=== PATIENT | male | born 1965 | race Caucasian/White ===

== ENCOUNTER 2016-12-14 16:11 | Emergency (ER) | payer BC ==
[~2016-12-14] VITALS: Ht 172.7 cm; Wt 122.7 kg
[~2016-12-14 16:11] MED LIST: AMOXICILLIN875 MG PO; ASPIRIN 81M81 MG/TA2 PO; CEPHALEXIN500 M1 PO; NO HOME MEDICATIONS; NORCO 325 MG-51 TAB PO; PRINZIDE 12.5 M1 TA1 PO; [UNRECOGNIZED DRUG - REMARK]
[2016-12-14 16:13] VITALS: TEMP 98.4
[2016-12-14 17:57] VITALS: BP 142/96; PULSE 88
== END 2016-12-14 17:58 | disposition home or self-care (01) ==
LOC: COL.ER 16:11
DX: M25.561 Pain in right knee (principal)
CPT/HCPCS: L1830

== ENCOUNTER 2017-12-15 11:14 | Emergency (ER) | payer BC ==
[~2017-12-15] VITALS: Ht 172.7 cm; Wt 127.3 kg
[2017-12-15 11:17] VITALS: BP 174/105; TEMP 98.9
[2017-12-15] MEDS ORDERED: MEDROL 4MG DOSPA4 MG PO (13:05)
[2017-12-15] MEDS ORDERED: PROAIR HFA0.09 MG/AC IH (13:05)
[2017-12-15 13:12] VITALS: PULSE 105
== END 2017-12-15 13:13 | disposition home or self-care (01) ==
LOC: COL.ER 11:14
DX: J40 Bronchitis, not specified as acute or chronic (principal); J02.9 Acute pharyngitis, unspecified; I10 Essential (primary) hypertension; F17.290 Nicotine dependence, other tobacco product, uncomplicated

== ENCOUNTER 2019-02-22 10:51 | Inpatient (IN) | payer BC ==
[~2019-02-22] VITALS: Ht 177.8 cm; Wt 98.8 kg
[2019-02-22] VITALS (514 sets, daily range): BP systolic 123–149; BP diastolic 79–140; PULSE 66–79; TEMP 97.7–97.8; O2SAT 75–100
[~2019-02-22 10:51] MED LIST changes: +MEDROL 4MG DOSPA4 MG PO; +PROAIR HFA0.09 MG/AC IH
[2019-02-22 11:47] LABS: BASO # 0.1 (0.0-0.2); BASO % 1.1 % (0.0-2.0); EOS % 0.8 % (0-4.0); GRAN # 2.7 (1.4-6.5); GRAN % 57.1 % (42.2-75.2); HEMATOCRIT 42.4 % (42.0-52.0); HEMOGLOBIN 15.7 g/dl (13.5-18.0); LYMPH # 1.6 (1.2-3.4); LYMPH % 33.5 % (20.0-51.0); MEAN CELL VOLUME 92 fl (80.0-100.0); MEAN CORPUSCULAR HEMOGLOBIN 34 pg (27.0-31.0); MEAN CORPUSCULAR HGB CONC 37 g/dl (33.0-37.0); MEAN PLATELET VOLUME 10.3 fl (7.4-10.4); MONO # 0.3 (0.1-0.6); MONO % 6.9 % (1.7-9.3); PLATELET COUNT 168 K/mm3 (130-400); RED BLOOD COUNT 4.62 M/mm3 (4.20-5.60); REDCELL DISTRIBUTION WIDTH-CV 14.1 % (11.5-14.5)
[2019-02-22 11:49] LABS: PROTHROMBIN TIME 11.3 SECONDS (9.7-12.8)
[2019-02-22 12:01] LABS: BILIRUBIN,TOTAL 0.8 mg/dL (0.0-1.0); C-REACTIVE PROTEIN 0.9 mg/dL (0.0-0.9); CREATININE, serum 0.54 (0.66-1.25); TOTAL PROTEIN 7.4 gm/dL (6.4-8.2)
[2019-02-22 12:03] LABS: POTASSIUM 2.3 mmol/L (3.4-5.0)
[2019-02-22 12:07] LABS: ERYTHROCYTE SEDIMENTATION RATE 2 mm/hr (0-30)
[2019-02-22] MEDS ORDERED: MOTRIN 800800 MG/TAB PO (12:39)
--- NOTE | 2019-02-22 14:20 | NUR ---
Patient arrives to ICU room 2 via WC from ED. He is placed on ICU monitors and assesment and vitals are as charted. Care assumed at this time.
--- NOTE | 2019-02-22 14:31 | NUR ---
Dr. Araiza notified of patient arrival to ICU 2. states he will be down shortly.
[2019-02-22 16:36] LABS: CALCIUM 8.5 mg/dL (8.4-10.2); CREATININE, serum 0.45 (0.66-1.25)
[2019-02-22 16:38] LABS: POTASSIUM 2.8 mmol/L (3.4-5.0)
[2019-02-22 18:17] LABS: COLLECTION METHOD CLEAN CATCH
[2019-02-22 18:36] LABS: MUCOUS Present /lpf; PH 7 (5-8); SQUAMOUS EPITHELIAL None Seen /hpf; TRICYCLIC ANTIDEPRESS URINE NEGATIVE; URINE APPEARANCE Clear; URINE BACTERIA Rare /hpf; URINE BILIRUBIN Negative (NEGATIVE); URINE BLOOD Negative (NEGATIVE); URINE COLOR Yellow; URINE GLUCOSE 3+ (NEGATIVE); URINE KETONE Trace (NEGATIVE); URINE LEUKOCYTE ESTERASE Negative (NEGATIVE); URINE NITRATE Negative (NEGATIVE); URINE PROTEIN(semi-quant) 1+ (NEGATIVE); URINE RBC None Seen /hpf; URINE WBC 0-2 /hpf
--- NOTE | 2019-02-22 19:13 | NUR ---
Bedside report provided to YUKO Flannery.
--- NOTE | 2019-02-22 19:32 | NUR ---
Patient assessment completed and charted at this time, please see documentation for details. Patient resting in bed, no questions or concerns at this time. Call light within reach, will continue to monitor and assess.
[2019-02-22 22:21] LABS: CALCIUM 8.1 mg/dL (8.4-10.2); CREATININE, serum 0.49 (0.66-1.25); MAGNESIUM 2.1 mg/dL (1.6-2.3); POTASSIUM 3.2 mmol/L (3.4-5.0)
[2019-02-23] VITALS (611 sets, daily range): BP systolic 96–144; BP diastolic 59–96; PULSE 52–67; TEMP 97.3–98.6; O2SAT 36–100
[2019-02-23 03:16] LABS: BASO # 0.1 (0.0-0.2); EOS # 0.1 (0.0-0.7); EOS % 1.2 % (0-4.0); GRAN % 38.9 % (42.2-75.2); HEMATOCRIT 38.7 % (42.0-52.0); HEMOGLOBIN 13.8 g/dl (13.5-18.0); LYMPH # 2.6 (1.2-3.4); LYMPH % 50.6 % (20.0-51.0); MEAN CELL VOLUME 96 fl (80.0-100.0); MEAN CORPUSCULAR HEMOGLOBIN 34 pg (27.0-31.0); MEAN CORPUSCULAR HGB CONC 36 g/dl (33.0-37.0); MEAN PLATELET VOLUME 10.7 fl (7.4-10.4); MONO # 0.4 (0.1-0.6); MONO % 8.1 % (1.7-9.3); PLATELET COUNT 147 K/mm3 (130-400); RED BLOOD COUNT 4.03 M/mm3 (4.20-5.60); REDCELL DISTRIBUTION WIDTH-CV 14.7 % (11.5-14.5)
[2019-02-23 03:28] LABS: BILIRUBIN,TOTAL 0.8 mg/dL (0.0-1.0); CALCIUM 7.9 mg/dL (8.4-10.2); CREATININE, serum 0.47 (0.66-1.25); MAGNESIUM 2.1 mg/dL (1.6-2.3); TOTAL PROTEIN 5.9 gm/dL (6.4-8.2)
[2019-02-23 03:29] LABS: POTASSIUM 2.9 mmol/L (3.4-5.0)
--- NOTE | 2019-02-23 07:15 | NUR ---
Report received from Prudencio HUNTLEY and care resumed.
--- NOTE | 2019-02-23 10:15 | NUR ---
Dr Araiza in to see pt at this time. Will transition off insulin drip and plan to transfer to floor. Will continue to follow.
--- NOTE | 2019-02-23 10:30 | NUR ---
SW attended clinical rounds to discuss discharge planning. Patient lives at home with his roommate. Patient does not currently have a PCP but is interested in obtaining one. SW inquired if patient would like to see a PCP at the [facility]. Patient reports he would be agreeable to that. Patient obtain prescriptions at [facility] pharmacy and reports not difficulties obtaining medications. Patient does not use any DME or home health services. It is reported that patient drinks a half gallon of rum daily. SW inquired if patient has ever been interested in alcohol treatment. Patient reports he has gone through treatment in the past and is not interested in doing that again. Patient does not have a DPOA but would like to complete the DPOA form. Patient designated his daughter. SW and SW student witnessed signature. SW provided original and extra copies. SHANNAN does not anticipate any discharge needs.
--- NOTE | 2019-02-23 12:07 | NUR ---
Initial visit; Patient thanked Emergency Veterinary Assistant for looking in on him and offering God's blessings.
--- NOTE | 2019-02-23 13:48 | NUR ---
Report given to Cary HUNTLEY and chapo tranfered.
--- NOTE | 2019-02-23 14:25 | NUR ---
Report claled to Nona HUNTLEY on medical floor. Pt to transfer to room 355 per wheelchair with chart and belongings.
--- NOTE | 2019-02-23 15:18 | NUR ---
PATIENT TRANSFERED TO ROOM 355 FROM ICU. A/O X 4 ATTITUDE CALM, COOPERATIVE AND PLEASANT. DENIES C/O OF PAIN OR DISCOMFORT. NS WITH 20MEQ OF K+ INFUSING ORDERED @ 100MLS PER HOUR. IV ACCESS WITH 20G IN BILATERAL HANDS. PATIENT ORIENTATED TO ROOM AND PLAN OF CARE AT THIS TIME. TELEMETRY IN PLACE. SEE FLOWSHEET FOR FVS OBTAINED.
[2019-02-24] VITALS (11 sets, daily range): BP systolic 125–168; BP diastolic 53–89; PULSE 56–77; TEMP 97.7–98.6
--- NOTE | 2019-02-24 00:08 | NUR ---
Completed assessment and medication administration; PT reported headache administered PRN pain medication and requested Tylenol or IBU for ongoing treatment from hospitalist oncog; PT A&O x4, BS active x4, CTAB, HRRR, IND AMB, daughter in room; No further assessed or verbalized complaints or concerns at time of exit; PT able to return to comfortable position in bed with personal items and call light within reach; Will continue to monitor. CDA
--- NOTE | 2019-02-24 01:46 | NUR ---
PT resting well in bed; No assessed or verbalized concerns or complaints at times of rounds; PT resting post PRN medication for headache; No new Tylenol or IBU orders with PT history, will continue current pain regimen as order; Will continue to monitor. CDA
[2019-02-24 06:20] LABS: BASO % 0.8 % (0.0-2.0); EOS % 0.8 % (0-4.0); GRAN # 2.3 (1.4-6.5); GRAN % 45.2 % (42.2-75.2); HEMATOCRIT 41.3 % (42.0-52.0); HEMOGLOBIN 14.5 g/dl (13.5-18.0); LYMPH # 2.4 (1.2-3.4); LYMPH % 46.5 % (20.0-51.0); MEAN CELL VOLUME 98 fl (80.0-100.0); MEAN CORPUSCULAR HEMOGLOBIN 34 pg (27.0-31.0); MEAN CORPUSCULAR HGB CONC 35 g/dl (33.0-37.0); MEAN PLATELET VOLUME 10.8 fl (7.4-10.4); MONO # 0.3 (0.1-0.6); MONO % 6.5 % (1.7-9.3); PLATELET COUNT 135 K/mm3 (130-400); RED BLOOD COUNT 4.21 M/mm3 (4.20-5.60); REDCELL DISTRIBUTION WIDTH-CV 14.6 % (11.5-14.5)
[2019-02-24 06:33] LABS: CALCIUM 7.7 mg/dL (8.4-10.2); CREATININE, serum 0.45 (0.66-1.25); POTASSIUM 3.4 mmol/L (3.4-5.0)
--- NOTE | 2019-02-24 06:58 | NUR ---
Report given to YUKO Castellano; No significant changes or concerns at time of shift change. CDA
--- NOTE | 2019-02-24 08:23 | NUR ---
PATIENT SITTING UP IN BED PLAYING ON PHONE AND WATCHING TV. ATTITUDE CALM AND COOPERATIVE. ALCOHOL WITHDRAWL SCORE 0. DENIES C/O OF PAIN, DISCOMFORT, OR ANXIETY. ATE 100% OF BREAKFAST WITH NO N/V. SHIFT ASSESSMENT WNL. POTASSIUM PROTOCOL ORDERS IN PLACE.
--- NOTE | 2019-02-24 13:49 | NUR ---
Primary nurse was assisted with [id number] was assisted with [employer] [employer] ADN student Carlos Ace and [facility] instructor Shanta Johnson RN-BC.
--- NOTE | 2019-02-24 16:09 | NUR ---
SHANNAN met with the patient to review discharge plan. The patient reports that he still plans to return home with his roommate and is not interested in alcohol treatment at this time. He informed SW that his health insurance does not have a prescription plan, but states that his sister provided him with prescription discount cards to [employer]. He states that he has a job and that tomorrow is pay day. SHANNAN informed the patient that she can hewitt his meds at this preferred pharmacy, [facility]. SHANNAN also followed up with the patient on primary care. The patient reports that he would like to be set up at the [facility]. SHANNAN to inform the patient's PA and continue to follow.
--- NOTE | 2019-02-24 19:28 | NUR ---
Pt had uneventful day, diabetic education discussed with patient. No needs at this time. Call light within reach.
[2019-02-25] VITALS (7 sets, daily range): BP systolic 127–189; BP diastolic 66–89; PULSE 50–113; TEMP 97.6–98.4
--- NOTE | 2019-02-25 00:45 | NUR ---
Completed assessment and medication administration; PT tolerated all cares well; No acute verbalized concerns; PT ready and interested in insulin education; PT A&Ox4, BS active x4, IND AMB, HRRR, PERRLA; 0 scoring with DETOX; No further assessed or verbalized concerns at time of exit; PT able to return to comfortable position in bed with personal items and call light within reach. CDA
--- NOTE | 2019-02-25 01:00 | NUR ---
THIS NURSE TAKING OVER CARE FOR PATIENT AT THIS TIME. PT SLEEPING.
--- NOTE | 2019-02-25 06:30 | NUR ---
PT APPEARED TO HAVE SLEPT WELL. VITALS REMAIN STABLE. PT ONLY SCORED A 1 ON DETOX SCALE THIS AM DUE TO PULSE OF 113. NO ISSUES OR CONSERNS VOICED AT THIS TIME.
[2019-02-25 07:10] LABS: BASO % 0.6 % (0.0-2.0); EOS % 0.8 % (0-4.0); GRAN # 3.1 (1.4-6.5); GRAN % 58.9 % (42.2-75.2); HEMATOCRIT 40.8 % (42.0-52.0); HEMOGLOBIN 14.1 g/dl (13.5-18.0); LYMPH # 1.8 (1.2-3.4); LYMPH % 33.2 % (20.0-51.0); MEAN CELL VOLUME 99 fl (80.0-100.0); MEAN CORPUSCULAR HEMOGLOBIN 34 pg (27.0-31.0); MEAN CORPUSCULAR HGB CONC 35 g/dl (33.0-37.0); MEAN PLATELET VOLUME 10.9 fl (7.4-10.4); MONO # 0.3 (0.1-0.6); MONO % 6.1 % (1.7-9.3); PLATELET COUNT 140 K/mm3 (130-400); RED BLOOD COUNT 4.12 M/mm3 (4.20-5.60); REDCELL DISTRIBUTION WIDTH-CV 14.6 % (11.5-14.5)
[2019-02-25 07:21] LABS: CALCIUM 7.9 mg/dL (8.4-10.2); CREATININE, serum 0.44 (0.66-1.25); POTASSIUM 3.2 mmol/L (3.4-5.0)
--- NOTE | 2019-02-25 09:05 | NUR ---
Pt assessment complete. Pt will have a student nurse caring for him this am. Pt is sitting up on the side of the bed watching shows on his phone. He is A/O x3. His breathing is even and unlabored on RA. He denies SOB. Pt denies any pain at this time. No N/V. He denies any N/T. Diabetic education given, pt demonstrated proper insulin injection technique. Handouts to be provided. No further needs at this time. Call light within reach.
[2019-02-25] MEDS ORDERED: ZESTRIL 20MG TA20 MG PO (13:34)
[2019-02-25] MEDS ORDERED: PRIL40 PO (13:37)
[2019-02-25] MEDS ORDERED: GLUCOPHAGE500 MG/TAB PO (13:38)
[2019-02-25] MEDS ORDERED: NOVOLIN 70/30 710 ML SQ (13:39)
[2019-02-25] MEDS ORDERED: K-DUR20 MEQ PO (13:41)
--- NOTE | 2019-02-25 13:46 | NUR ---
Primary nurse was assisted with [id number] patient care by [employer] student Carlos Ace and [employer] instructor Shanta Johnson RN-BC.
[2019-02-25] MEDS ORDERED: FREESTYLE PREC1 EAC5 MC (13:50)
[2019-02-25] MEDS ORDERED: GLUCOSE TEST ST1 DEV MC (13:50)
[2019-02-25] MEDS ORDERED: CVS GLUCOSE BIT1 CTB PO (13:50)
[2019-02-25] MEDS ORDERED: B-D SAFETY GLID1 DE1 SQ (13:50)
[2019-02-25] MEDS ORDERED: LANCETS MC (13:50)
--- NOTE | 2019-02-25 15:07 | NUR ---
SW contacted the patient's pharmacy, [facility], to hewitt his medications. The glucometer the pharmacy picked out was $100.99, but they report they have a cheaper brand that costs around $9.00. The pharmacist reports that she will pull that glucometer for the patient and the supplies that goes along with it. SW updated the patient. The patient was in agreeance to pursue getting his meds at [facility]. He states that he also has those discount prescription cards that he can try using. No additional needs at this time.
--- NOTE | 2019-02-25 15:23 | NUR ---
Discharge paperwork reviewed with patient and his daughter. Diabetes, testing and treatment all discussed with patient. All questions answered at this time. Pt sent with education. IV to R wrist dc'd, catheter tip intact.
--- NOTE | 2019-02-25 15:29 | NUR ---
Pt wheeled out of facility at this time.
== END 2019-02-25 15:29 | disposition home or self-care (01) | DRG 638 ==
LOC: COL.ER 10:51 → ICU 12:59 → EDBEDREQ 13:33 → MEDICAL 02-23 14:47
PROVIDERS: Emergency Medicine; Physician Assistant; ADMIT Internal Medicine
DX: E11.65 Type 2 diabetes mellitus with hyperglycemia (principal); K92.0 Hematemesis; E87.2 Acidosis; E87.6 Hypokalemia; I10 Essential (primary) hypertension; F17.210 Nicotine dependence, cigarettes, uncomplicated; F10.10 Alcohol abuse, uncomplicated; Y90.1 Blood alcohol level of 20-39 mg/100 ml
CPT/HCPCS: 99223-AI; 99233-AI; 99239; J1200; J1815; J1885; J2765; J3475; J3480

== ENCOUNTER → 2019-03-04 | Outpatient (CLI) | payer BC ==
[~2019-03-04] MED LIST changes: +B-D SAFETY GLID1 DE1 SQ; +CVS GLUCOSE BIT1 CTB PO; +FREESTYLE PREC1 EAC5 MC; +GLUCOPHAGE500 MG/TAB PO; +GLUCOSE TEST ST1 DEV MC; +K-DUR20 MEQ PO; +LANCETS MC; +MOTRIN 800800 MG/TAB PO; +NOVOLIN 70/30 710 ML SQ; +PRIL40 PO; +ZESTRIL 20MG TA20 MG PO
[2019-03-04 17:25] LABS: BILIRUBIN,TOTAL 0.6 mg/dL (0.0-1.0); CALCIUM 10.1 mg/dL (8.4-10.2); CHOLESTEROL RISK RATIO 3.8; CREATININE, serum 0.57 (0.66-1.25); POTASSIUM 4.1 mmol/L (3.4-5.0); TOTAL PROTEIN 7.6 gm/dL (6.4-8.2)
== END ==
LOC: ZCOL.LAB 17:11
PROVIDERS: Family Medicine
DX: E11.9 Type 2 diabetes mellitus without complications (principal); E87.6 Hypokalemia

== ENCOUNTER → 2019-04-20 | Outpatient (CLI) | payer BC ==
[2019-04-20 19:19] LABS: ALANINE AMINOTRANSFERASE 29 U/L (21-72); AST,SGOT 29 U/L (15-37); CREATINE KINASE 118 U/L (55-170)
== END ==
LOC: ZCOL.LAB 16:17
PROVIDERS: Family Medicine
DX: Z51.81 Encounter for therapeutic drug level monitoring (principal)

== ENCOUNTER → 2019-06-28 | Outpatient (CLI) | payer BC ==
[2019-06-28 17:13] LABS: CALCIUM 9.5 mg/dL (8.4-10.2); CREATININE, serum 0.59 (0.66-1.25); POTASSIUM 3.5 mmol/L (3.4-5.0)
== END ==
LOC: ZCOL.LAB 16:31
PROVIDERS: Family Medicine
DX: E11.9 Type 2 diabetes mellitus without complications (principal); I10 Essential (primary) hypertension

== ENCOUNTER → 2020-09-12 | Outpatient (CLI) | payer BC | LOC: COL.RAD 10:30 | DX: R10.13 Epigastric pain (principal); R14.0 Abdominal distension (gaseous) ==

== ENCOUNTER → 2020-12-13 | Outpatient (CLI) | payer BC ==
[~2020-12-13] MED LIST changes: +CARAFATE 1GM1 G PO; +GLUCOPHAGE1000 MG PO; +NOVOLOG MIX 70/33 ML SQ; +PRINIVIL40 MG PO; +PROTONIX 40MG T40 MG PO
[2020-12-13 14:12] LABS: ALANINE AMINOTRANSFERASE 154 U/L (4-49); ALKALINE PHOSPHATASE 131 U/L (50-136); ANION GAP 11 mmol/L (7-16); AST,SGOT 142 U/L (15-37); BILIRUBIN,TOTAL 0.5 mg/dL (0.0-1.0); BLOOD UREA NITROGEN 19 mg/dL (9-20); CALCIUM 9.5 mg/dL (8.4-10.2); CARBON DIOXIDE 19 mmol/L (22-30); CHLORIDE 110 mmol/L (98-107); CREATININE, serum 0.69 (0.66-1.25); GLUCOSE 130 mg/dL (74-106); LIPASE 1164 U/L (23-300); POTASSIUM 4.2 mmol/L (3.4-5.0); SODIUM 140 mmol/L (137-145); TOTAL PROTEIN 7.9 gm/dL (6.4-8.2)
[2020-12-13 14:23] LABS: TROPONIN-I < 0.012 ng/mL (0.000-0.035)
== END ==
LOC: ZCOL.LAB 09:48
PROVIDERS: Family Medicine
DX: R63.4 Abnormal weight loss (principal)

== ENCOUNTER → 2020-12-18 | Outpatient (CLI) | payer BC | LOC: COL.RAD 10:07 | DX: M47.816 Spondylosis without myelopathy or radiculopathy, lumbar region (principal) | CPT/HCPCS: Q9967 ==

== ENCOUNTER 2022-04-14 07:51 | Emergency (ER) | payer BC ==
[~2022-04-14] VITALS: Ht 170.2 cm; Wt 127.3 kg
[2022-04-14 07:59] VITALS: TEMP 98.5
[2022-04-14 08:27] LABS: BASO # 0.1 K/mm3 (0.0-0.2); BASO % 1.4 % (0.0-2.0); EOS % 0.9 % (0.0-4.0); HEMATOCRIT 39.1 % (42.0-52.0); HEMOGLOBIN 14.3 g/dl (13.5-18.0); LYMPH # 1.9 K/mm3 (1.2-3.4); LYMPH % 42.9 % (20.0-51.0); MEAN CELL VOLUME 93 fl (80.0-100.0); MEAN CORPUSCULAR HEMOGLOBIN 34 pg (27-31); MEAN CORPUSCULAR HGB CONC 37 g/dl (33.0-37.0); MEAN PLATELET VOLUME 9.9 fl (7.4-10.4); MONO # 0.4 K/mm3 (0.1-0.6); MONO % 8.3 % (1.7-9.3); PLATELET COUNT 200 K/mm3 (130-400); RED BLOOD COUNT 4.19 M/mm3 (4.20-5.60); REDCELL DISTRIBUTION WIDTH-CV 14.9 % (11.5-14.5)
[2022-04-14 08:37] LABS: ACETONE,SERUM NEGATIVE
[2022-04-14 08:51] LABS: ALANINE AMINOTRANSFERASE 83 U/L (0-55); ALBUMIN 3.4 gm/dL (3.5-5.0); ALKALINE PHOSPHATASE 77 U/L (40-150); ANION GAP 20 mmol/L (7-16); AST,SGOT 61 U/L (5-34); BILIRUBIN,TOTAL 0.5 mg/dL (0.2-1.2); BLOOD UREA NITROGEN 15 mg/dL (8-26); CALCIUM 8.8 mg/dL (8.4-10.2); CARBON DIOXIDE 17 mmol/L (22-29); CHLORIDE 102 mmol/L (98-107); CREATININE, serum 1.03 mg/dL (0.72-1.25); GLUCOSE 382 mg/dL (70-99); LIPASE 71 U/L (8-78); SODIUM 139 mmol/L (136-145); TOTAL PROTEIN 7.6 gm/dL (6.2-8.1)
[2022-04-14 09:06] LABS: TSH w REFLEX 0.948 uIU/mL (0.350-4.940)
[2022-04-14 09:09] LABS: POTASSIUM 2.4 mmol/L (3.5-4.5)
[2022-04-14 09:10] LABS: TROPONIN-I < 0.010 ng/mL (0.00-0.033)
[2022-04-14 11:34] VITALS: BP 150/84; PULSE 88
== END 2022-04-14 11:36 | disposition home or self-care (01) ==
LOC: COL.ER 07:51
PROVIDERS: Emergency Medicine
DX: E87.2 Acidosis (principal); K59.00 Constipation, unspecified; E87.6 Hypokalemia; Z28.310 Unvaccinated for COVID-19
CPT/HCPCS: J1815; J7120

== ENCOUNTER 2022-08-28 09:58 | Emergency (ER) | payer BC ==
[~2022-08-28] VITALS: Ht 170.2 cm; Wt 96.3 kg
[2022-08-28 10:17] VITALS: TEMP 98.4
[2022-08-28 11:00] LABS: BASO # 0.1 K/mm3 (0.0-0.2); BASO % 0.7 % (0.0-2.0); EOS # 0.1 K/mm3 (0.0-0.7); GRAN # 5.2 K/mm3 (1.4-6.5); GRAN % 64.1 % (42.2-75.2); HEMATOCRIT 36.5 % (42.0-52.0); HEMOGLOBIN 13.5 g/dl (13.5-18.0); LYMPH # 2.1 K/mm3 (1.2-3.4); LYMPH % 26.4 % (20.0-51.0); MEAN CELL VOLUME 93 fl (80.0-100.0); MEAN CORPUSCULAR HEMOGLOBIN 34 pg (27-31); MEAN CORPUSCULAR HGB CONC 37 g/dl (33.0-37.0); MEAN PLATELET VOLUME 10.2 fl (7.4-10.4); MONO # 0.6 K/mm3 (0.1-0.6); MONO % 7.3 % (1.7-9.3); PLATELET COUNT 226 K/mm3 (130-400); RED BLOOD COUNT 3.94 M/mm3 (4.20-5.60); REDCELL DISTRIBUTION WIDTH-CV 14.4 % (11.5-14.5)
[2022-08-28 11:21] LABS: ALANINE AMINOTRANSFERASE 91 U/L (0-55); ALBUMIN 3.1 gm/dL (3.5-5.0); ALKALINE PHOSPHATASE 80 U/L (40-150); ANION GAP 10 mmol/L (7-16); AST,SGOT 78 U/L (5-34); BILIRUBIN,TOTAL 0.7 mg/dL (0.2-1.2); BLOOD UREA NITROGEN 12 mg/dL (8-26); CALCIUM 8.2 mg/dL (8.4-10.2); CARBON DIOXIDE 16 mmol/L (22-29); CHLORIDE 112 mmol/L (98-107); CREATININE, serum 0.65 mg/dL (0.72-1.25); GLUCOSE 65 mg/dL (70-99); SODIUM 138 mmol/L (136-145); TOTAL PROTEIN 7.1 gm/dL (6.2-8.1)
[2022-08-28 11:40] LABS: THYROID STIMULATING HORMONE 1.405 uIU/mL (0.350-4.940)
[2022-08-28 11:42] LABS: COLLECTION METHOD CLEAN CATCH
[2022-08-28 11:49] LABS: POTASSIUM 2.2 mmol/L (3.5-4.5); TROPONIN-I < 0.010 ng/mL (0.00-0.033)
[2022-08-28 12:00] LABS: SQUAMOUS EPITHELIAL 0-2 /hpf (0-10); URINE BACTERIA Rare /hpf (NONE SEEN)
[2022-08-28 12:02] LABS: URINE APPEARANCE Cloudy (CLEAR/HAZY); URINE BLOOD 1+ (NEGATIVE); URINE COLOR Yellow (YELLOW); URINE GLUCOSE Negative (NEGATIVE); URINE KETONE Negative (NEGATIVE); URINE NITRATE Negative (NEGATIVE); URINE PROTEIN(semi-quant) 1+ (NEGATIVE)
[2022-08-28] MEDS ORDERED: CEPHALEXIN500 M1 PO (13:23)
[2022-08-28] MEDS ORDERED: MAG-OX 400400 MG/TAB PO (13:42)
[2022-08-28 14:10] VITALS: BP 132/88; PULSE 89
== END 2022-08-28 14:10 | disposition home or self-care (01) ==
LOC: COL.ER 09:58
PROVIDERS: Nurse Practitioner Family
DX: E87.6 Hypokalemia (principal); N39.0 Urinary tract infection, site not specified; E10.9 Type 1 diabetes mellitus without complications; F17.200 Nicotine dependence, unspecified, uncomplicated; Z20.822 Contact with and (suspected) exposure to COVID-19; Z79.4 Long term (current) use of insulin
CPT/HCPCS: J0696; J7120